=== PATIENT | female | born 1950 | race Caucasian/White ===

== ENCOUNTER → 2017-02-06 | Outpatient (CLI) | payer BC ==
[2017-02-06 18:06] LABS: ESTIMATED AVERAGE GLUCOSE 117 mg/dl; HA1C FLAG Normal (Normal)
== END | disposition home or self-care (01) ==
LOC: C.LABPVFM 14:11
PROVIDERS: ATTEND Neuromusculoskeletal Medicine & OMM
DX: Z00.00 Encounter for general adult medical examination without abnormal findings (principal); Z11.59 Encounter for screening for other viral diseases

== ENCOUNTER → 2017-04-06 | Outpatient (CLI) | payer BC ==
--- NOTE | 2017-04-06 13:48 | MAMMOGRAPHY REPORT ---
BILATERAL DIGITAL SCREENING MAMMOGRAM WITH CAD: 04/06/2017 CLINICAL HISTORY: Routine screening. Patient has no complaints. TECHNIQUE: Current study was also evaluated with a Computer Aided Detection (CAD) system. Bilateral CC and MLO views were obtained. COMPARISON: Comparison is made to exam dated: 04/12/2011 mammogram - [facility]. BREAST COMPOSITION: There are scattered areas of fibroglandular density in both breasts. FINDINGS: No suspicious masses, calcifications, or areas of architectural distortion are noted in ei ther breast. There has been no significant interval change compared to prior exams. IMPRESSION: ACR BI-RADS CATEGORY 1: NEGATIVE There is no mammographic evidence of malignancy. A 1 year screening mammogram is recommended. The pa tient will receive written notification of the results. Approximately 10% of breast cancers are not detected with mammography. A negative mammographic report should not delay biopsy if a clinically suggestive mass is present. Karoline Barrera M.D. ah/:04/06/2017 12:53:00 Exchange Trouble Shooter: Graciela KAHN(Preston)(Ana), [facility] letter sent: Normal 1/2 BI-RADS Code: ACR BI-RADS Category 1: Negative
== END | disposition home or self-care (01) ==
LOC: C.MAMM 11:12
PROVIDERS: ATTEND Neuromusculoskeletal Medicine & OMM
DX: Z00.00 Encounter for general adult medical examination without abnormal findings (principal); Z12.31 Encounter for screening mammogram for malignant neoplasm of breast; M85.89 Other specified disorders of bone density and structure, multiple sites

== ENCOUNTER 2022-06-21 08:11 | Observation (INO) ==
--- NOTE | 2022-06-21 09:04 | Emergency Department Note ---
History of Present Illness General Chief complaint: Visual Disturbance Stated complaint: EYE PROBLEMS Time Seen by Provider: 06/21/22 08:52 History of Present Illness Provider complaint: "I feel like I was not getting enough oxygen" Onset (ago): hour(s) 4 Associated symptoms: + cough; no chest pain, no fever/chills, no headaches or no nausea/vomiting 71-year-old female presents emergency department stating "I feel like I was not getting enough oxygen". Patient reports her symptoms started at 5 AM. Patient reports she was not short of breath but was worried she is not getting enough oxygen in her body because she was having blurry vision. Patient reports the blurry vision has resolved and she now feels like she is getting adequate oxygen in her body. Patient denies any chest pain or difficulty breathing. Patient does report a cough. No fevers. Patient states that she had no chest pain. Home Medications Medication Instructions Recorded Confirmed Type aspirin 81 mg tablet,delayed 81 mg PO DAILY 06/03/22 06/21/22 History release (Adult Aspirin Regimen) atorvastatin 80 mg tablet 80 mg PO DAILY #90 tabs 06/16/22 06/21/22 Rx lisinopril 2.5 mg tablet 2.5 mg PO DAILY #90 tabs 06/16/22 06/21/22 Rx metoprolol succinate 25 mg 25 mg PO DAILY #90 tabs 06/16/22 06/21/22 Rx tablet,extended release 24 hr ticagrelor 90 mg tablet 90 mg PO Q12H #180 tabs 06/16/22 06/21/22 Rx Allergies Allergy/AdvReac Type Severity Reaction Status Date / Time acetaminophen Allergy Unknown "made me Verified 06/03/22 10:02 sick" shellfish derived Allergy Unknown SEAFOOD Verified 06/03/22 10:02 ALLERGY aspirin AdvReac Unknown BLEEDING Verified 06/03/22 10:02 meperidine AdvReac Unknown "felt like Verified 06/03/22 10:02 my head and heart was going to blow up" oxycodone AdvReac Unknown "felt like Verified 06/03/22 10:02 my head and heart was going to blow up" Darvocet Allergy Unknown Uncoded 06/03/22 10:02 Past Med/Surg History Medical History (Updated 06/21/22 @ 13:28 by Jose Carlos Quentin) Abnormal blood sugar Bladder prolapse CAD (coronary artery disease) Elevated blood-pressure reading, without diagnosis of hypertension Graves disease HTN (hypertension) STEMI (ST elevation myocardial infarction) Surgical History (Updated 06/21/22 @ 12:55 by MAU Clark) H/O heart artery stent History of cardiac cath X2 ON 05/30/2022 AND 06/01/2022 History of cholecystectomy History of hysterectomy History of total right knee replacement Status post coronary artery stent placement Family History Mother Stroke Heart disease Bleeding disorder Brother Asthma Bleeding disorder Other No family history of adverse response to anesthesia Denies family history of Ovarian cancer Prostate cancer Myocardial infarction Breast cancer Colorectal cancer Social History Smoking Status: Never smoker packs per day: 0.5; Years Smoked: 20; Second Hand Exposure: No; Hx Alcohol Use: No Hx Substance Use: No Visual Impairment: No Limitations Hearing Ability: Normal Beliefs That Will Affect Care: None marital status: Current Living Situation: Spouse current occupational status: employed and retired 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 Feels Safe at Home: Yes caffeine: Yes Dental Care, Regularly: No Physical Activity Frequency: 1-2 Times per Week Seatbelt Use: always Sunscreen Use: Yes Review of Systems A total of 10 systems reviewed and were otherwise negative Physical Exam Vital Signs Vital Signs - 24 hr 06/21/22 08:20 06/21/22 09:04 06/21/22 12:12 Temperature 36.6 C 36.7 C Temperature Source Temporal Artery Scan Oral Pulse Rate 72 69 Pulse Rate [Apical] 68 Pulse Rhythm Regular Respiratory Rate 18 18 16 Respiratory Effort / Characteristics Non-Labored Spontaneous Respiratory Depth Normal Respiratory Pattern Regular Blood Pressure 117/64 Blood Pressure [Left Arm] 131/74 Blood Pressure Mean 81 Blood Pressure Mean [Left Arm] 93 Blood Pressure Position Sitting Pulse Oximetry 98 97 97 Oxygen Delivery Method Room Air Room Air Room Air Sepsis Recent Fever Within 48 Hours No Sepsis New/Unexplained Change in Mental Status No Sepsis Action Taken by Nursing No Action Required Physical Exam GENERAL: She is oriented to person, place, and time. She appears well-developed and well-nourished. She does not appear distressed. HENT: Exam performed. -Head: Normocephalic and atraumatic. -Right Ear: External ear normal. No mastoid tenderness. -Left Ear: External ear normal. No mastoid tenderness. -Mouth/Throat: The oropharynx is clear and moist. No trismus in the jaw. No dental abscesses or uvula swelling. No oropharyngeal exudate or tonsillar abscesses. EYES: Conjunctivae and EOM are normal. Pupils are equal, round, and reactive to light. Right eye exhibits no discharge. Left eye exhibits no discharge. No scleral icterus. NECK: Normal range of motion. Neck supple. No JVD present. No spinous process tenderness present. No carotid bruit present. No rigidity. No tracheal deviation and normal range of motion present. No Brudzinski's sign and no Kernig's sign noted. CV: Normal rate, regular rhythm, normal heart sounds and intact distal pulses. There is no peripheral edema. Palpable radial pulses bue. PULM/CHEST: Effort normal and breath sounds normal. No respiratory distress. No stridor. She has no wheezes. She has no rales. -Chest Wall: She exhibits no tenderness. ABD: The abdomen is soft. Bowel sounds are normal. She has no distension. No mass is present. There is no tenderness. There is no rebound, no guarding, no Holden's sign and no tenderness at McBurney's point. Rovsig negative MUSC/SKEL: Normal range of motion. There is no peripheral edema, tenderness or deformity. LYMPH: No cervical adenopathy. NEURO: She is alert and oriented to person, place, and time. She has normal strength. No cranial nerve deficit or sensory deficit. Coordination and gait normal. GCS eye subscore is 4. GCS verbal subscore is 5. GCS motor subscore is 6. Cerebellar tests wnl. SKIN: Skin is warm and dry. She is not diaphoretic. PSYCH: She has a normal mood and affect. Behavior is normal. Judgment and thought content normal. Course Course 851: The patient was evaluated in room A10. A complete history and physical exam was performed Cardiac monitoring: An order was placed for continuous cardiac monitoring. The monitor shows a rate of 60 with sinus rhythm EMR reviewed. Patient had a STEMI on May 30, 2022. She had a cardiac catheterization done on that day and a stent was placed in her LAD as there is 9 9% occlusion. The patient had a subsequent catheterization on June 01 and had a stent placed in her RCA. 1200: Vital signs stable. Labs within normal limits with exception of elevated high-sensitivity troponin of 30. Imaging within normal limits. Given the patient's history of coronary artery disease and recent stent placement discussed with [facility] hospitalist team who agreed the patient should be admitted for serial troponins. She states to admit to Dr. Hu Administered Medications Discontinued Medications Ioversol (Optiray 300 500ml) 120 ml IV ONCE ONE Stop: 06/21/22 11:09 Last Admin: 06/21/22 11:08 Dose: 120 ml Documented By: KESHIA Medical Decision Making Laboratory Data Result diagrams: 06/21/22 09:04 06/21/22 11:17 Lab Results 06/21/22 06/21/22 06/21/22 Range/Units 09:04 09:04 09:04 WBC 6.11 (4.8-10.8) K/ul RBC 4.67 (3.93-5.22) M/uL Hgb 13.4 (12.0-16.0) g/dl POC Hgb (12.0-16.0) g/dl Hct 40.1 (34.1-44.9) % POC Hct (37-47) % MCV 85.9 (80.0-100.0) fL MCH 28.7 (25.0-34.0) pg MCHC 33.4 (32.0-36.0) g/dL RDW Std Deviation 39.8 (36.4-46.3) fL RDW Coeff of Rose Marie 12.8 (11.5-14.5) % Plt Count 227 (130-400) K/uL MPV 12.2 (9.4-12.3) fL Immature Gran % (Auto) 0.3 % Neut % (Auto) 72.9 % Lymph % (Auto) 17.5 % Glades % (Auto) 6.7 % Eos % (Auto) 1.8 % Baso % (Auto) 0.8 % Neut # (Auto) 4.45 (1.4-6.5) K/uL Lymph # (Auto) 1.07 L (1.2-3.4) K/uL Glades # (Auto) 0.41 (0.24-0.82) K/uL Eos # (Auto) 0.11 (0-0.50) K/uL Baso # (Auto) 0.05 (0-0.2) K/uL Immature Gran # (Auto) 0.02 (0.00-0.02) K/uL PT 10.5 (9.0-12.0) Seconds INR 1.0 (0.9-1.1) APTT 25.1 (21.0-31.0) Seconds PTT Ratio 0.9 POC Sodium (135-144) mmol/L Sodium 136 (136-145) mmol/L POC Potassium (3.3-5.0) mmol/L Potassium TNP POC Chloride (101-112) mmol/L Chloride 105 (98-107) mmol/L Carbon Dioxide 21 (21-32) mmol/L POC Total CO2 (24-31) mmol/L Anion Gap 10 (3-11) POC Anion Gap (16-25) mmol/L POC BUN (7-18) mg/dl BUN 18 (6-23) mg/dl Creatinine 0.94 (0.6-1.2) mg/dl POC Creatinine (0.6-1.3) mg/dl Est Cr Clr Drug Dosing 48.0 ml/min Est GFR ( Amer) 69.8 ml/min Est GFR (Non-Af Amer) 60.2 ml/min BUN/Creatinine Ratio 19.1 (10-20) Glucose 88 (70-99(Fasting)) mg/dl POC Glucose (other) (70-99) mg/dl Calcium 10.1 (8.5-10.1) mg/dl POC Ioniz Calcium Mikayla (1.12-1.32) mmol/l Troponin I High Sens 30.5 H (0-14) pg/ml Lipase 112 H (11-82) U/L SARS-CoV-2, RNA, NAAT (NEGATIVE) 06/21/22 06/21/22 06/21/22 Range/Units 09:28 11:17 11:33 WBC (4.8-10.8) K/ul RBC (3.93-5.22) M/uL Hgb (12.0-16.0) g/dl POC Hgb 11.9 L (12.0-16.0) g/dl Hct (34.1-44.9) % POC Hct 35 L (37-47) % MCV (80.0-100.0) fL MCH (25.0-34.0) pg MCHC (32.0-36.0) g/dL RDW Std Deviation (36.4-46.3) fL RDW Coeff of Rose Marie (11.5-14.5) % Plt Count (130-400) K/uL MPV (9.4-12.3) fL Immature Gran % (Auto) % Neut % (Auto) % Lymph % (Auto) % Glades % (Auto) % Eos % (Auto) % Baso % (Auto) % Neut # (Auto) (1.4-6.5) K/uL Lymph # (Auto) (1.2-3.4) K/uL Glades # (Auto) (0.24-0.82) K/uL Eos # (Auto) (0-0.50) K/uL Baso # (Auto) (0-0.2) K/uL Immature Gran # (Auto) (0.00-0.02) K/uL PT (9.0-12.0) Seconds INR (0.9-1.1) APTT (21.0-31.0) Seconds PTT Ratio POC Sodium 137 (135-144) mmol/L Sodium (136-145) mmol/L POC Potassium 4.3 (3.3-5.0) mmol/L Potassium 4.2 POC Chloride 103 (101-112) mmol/L Chloride (98-107) mmol/L Carbon Dioxide (21-32) mmol/L POC Total CO2 23 L (24-31) mmol/L Anion Gap (3-11) POC Anion Gap 15.0 L (16-25) mmol/L POC BUN 18 (7-18) mg/dl BUN (6-23) mg/dl Creatinine (0.6-1.2) mg/dl POC Creatinine 0.9 (0.6-1.3) mg/dl Est Cr Clr Drug Dosing ml/min Est GFR ( Amer) ml/min Est GFR (Non-Af Amer) ml/min BUN/Creatinine Ratio (10-20) Glucose (70-99(Fasting)) mg/dl POC Glucose (other) 88 (70-99) mg/dl Calcium (8.5-10.1) mg/dl POC Ioniz Calcium Mikayla 1.21 (1.12-1.32) mmol/l Troponin I High Sens (0-14) pg/ml Lipase (11-82) U/L SARS-CoV-2, RNA, NAAT NEGATIVE (NEGATIVE) Imaging Data Radiologist's Impression: Chest X-Ray 06/21/22 09:01 XR chest 1V portable CLINICAL HISTORY: Chest Pain TECHNIQUE: Single frontal radiograph of the chest was obtained. Comparison: Comparison is made to chest radiograph 02/17/2013 FINDINGS: No lines and tubes are seen. Calcified aortic knob is seen. The lungs are clear. No evidence of pleural effusion or pneumothorax. IMPRESSION: No acute chest disease. ACT 112: Negative or not required by law. Electronically signed by: Rafal Tatum M.D. 06/21/2022 9:[address] 06/21/22 09:01 CT head/brain wo con CLINICAL HISTORY: 71 years-old Female with blurry vision resolved. Acute strokelike symptoms with blurry vision TECHNIQUE: Multiple axial CT images of the head were obtained without contrast. A dose lowering technique was utilized adhering to the principles of ALARA. CT DOSE: 537.48 mGy.cm COMPARISON: Head CT 04/07/2010 FINDINGS: No acute intracranial hemorrhage, midline shift, intracranial mass, hydrocephalus, territorial ischemia or abnormal extra-axial collection. Mild involutional changes. The calvarium is intact. The paranasal sinuses, mastoid air cells, and middle ear cavities are clear. IMPRESSION: No acute intracranial abnormality. ACT 112: Negative or not required by law. The above report was generated using voice recognition software. It may contain grammatical, syntax or spelling errors. Electronically signed by: Bolivar Allen M.D. 06/21/2022 9:43 AM Chest CTA 06/21/22 10:33 CT angio chest PE protocol CLINICAL HISTORY: ro pe TECHNIQUE: Multidetector row helical CT of the chest was performed with angiographic protocol. Coronal and sagittal reformations were obtained. Coronal and sagittal MIPS were obtained from the axial data set and were submitted for review. Automated dose lowering techniques and/or adjustment according to patient size were utilized for this exam. CT DOSE: 261.24 mGy.cm Comparison: Comparison is made to chest radiograph 06/21/2022 and CTA chest 10/16/2010 FINDINGS: Lungs and pleura: There is a 4 mm nodule in the left lower lobe (series 4 image 90). A fissural node is seen in the right horizontal fissure which may represent an intraparenchymal lymph node. Heart and pericardium: Heart size is normal. No pericardial effusion. Vessels: Evaluation for pulmonary embolism is limited due to patient motion. No evidence of central, lobar, or segmental embolus. Severe atherosclerotic disease is seen in the coronary arteries. Mediastinum and saul: Subcentimeter lymph nodes are seen. Chest wall and lower neck: Unremarkable. Abdomen: A hiatal hernia is seen. Bones: Degenerative changes in the thoracic spine. IMPRESSION: 1. No evidence of pulmonary embolism. 2. 4 mm nodule in the left lower lobe. This is unchanged from prior exam. No further follow-up is required. ACT 112: Negative or not required by law. Electronically signed by: Rafal Tatum M.D. 06/21/2022 11:27 AM ECG Data Indication: + SOB/dyspnea Rate (beats per minute): 64 Rhythm: + normal sinus ECG Intervals/blocks: + Normal TX and + Normal QT-c ECG ST segments: + Normal ST segments Additional Comments: QRS 76 MDM Narrative 0852: The patient was evaluated in room A10. A complete history and physical exam was performed Cardiac monitoring: An order was placed for continuous cardiac monitoring. The monitor shows a rate of 60 with sinus rhythm EMR reviewed. Patient had a STEMI on May 30, 2022. She had a cardiac catheterization done on that day and a stent was placed in her LAD as there is 99% occlusion. The patient had a subsequent catheterization on June 01 and had a stent placed in her RCA. 1200: Vital signs stable. Labs within normal limits with exception of elevated high-sensitivity troponin of 30. Imaging within normal limits. Given the patient's history of coronary artery disease and recent stent placement discussed with [facility] hospitalist team who agreed the patient should be admitted for serial troponins. She states to admit to Dr. Hu Impression & Plan Shortness of breath, Elevated troponin Discharge Plan Visit Data Chief Complaint: Visual Disturbance Stated Complaint: EYE PROBLEMS ED Provider: Jose Carlos Saavedra Discharge Problem: Shortness of breath, Elevated troponin Patient Disposition: Being Evaluated by Hospitalist Forms Stand Alone Forms: My [facility] Prescriptions Prescriptions: No Action atorvastatin 80 mg tablet 80 mg PO DAILY Qty: 90 3RF lisinopril 2.5 mg tablet 2.5 mg PO DAILY Qty: 90 3RF metoprolol succinate 25 mg tablet extended release 24 hr 25 mg PO DAILY Qty: 90 3RF ticagrelor 90 mg tablet 90 mg PO Q12H Qty: 180 3RF aspirin [Adult Aspirin Regimen] 81 mg tablet,delayed release (DR/EC) 81 mg PO DAILY Referrals Referrals: Linda Johnson CRNP [Nurse Practitioner] -
--- NOTE | 2022-06-21 09:11 | XRay Report ---
XR chest 1V portable CLINICAL HISTORY: Chest Pain TECHNIQUE: Single frontal radiograph of the chest was obtained. Comparison: Comparison is made to chest radiograph 02/17/2013 FINDINGS: No lines and tubes are seen. Calcified aortic knob is seen. The lungs are clear. No evidence of pleur al effusion or pneumothorax. IMPRESSION: No acute chest disease. ACT 112: Negative or not required by law. Electronically signed by: Rafal Tatum M.D. 06/21/2022 9:09 AM
[2022-06-21 09:20] LABS: Basophils # (auto) 0.05 K/uL (0-0.2); Basophils % (auto) 0.8 %; Eosinophils # (auto) 0.11 K/uL (0-0.50); Eosinophils % (auto) 1.8 %; Hematocrit (blood only) 40.1 % (34.1-44.9); Hemoglobin 13.4 g/dl (12.0-16.0); Immature Granulocytes # (auto) 0.02 K/uL (0.00-0.02); Immature Granulocytes % (auto) 0.3 %; Lymphocytes # (auto) 1.07 K/uL (1.2-3.4); Lymphocytes % (auto) 17.5 %; Mean Corpuscular Hemoglobin 28.7 pg (25.0-34.0); Mean Corpuscular Hgb Conc 33.4 g/dL (32.0-36.0); Mean Corpuscular Volume 85.9 fL (80.0-100.0); Mean Platelet Volume 12.2 fL (9.4-12.3); Monocytes # (auto) 0.41 K/uL (0.24-0.82); Monocytes % (auto) 6.7 %; Neutrophils # (auto) 4.45 K/uL (1.4-6.5); Neutrophils % (auto) 72.9 %; Platelet Count 227 K/uL (130-400); RDW Coefficient of Variation 12.8 % (11.5-14.5); RDW Standard Deviation 39.8 fL (36.4-46.3); Red Blood Count 4.67 M/uL (3.93-5.22); White Blood Count 6.11 K/ul (4.8-10.8)
[2022-06-21 09:36] LABS: Partial Thromboplastin Ratio 0.9; Partial Thromboplastin Time 25.1 Seconds (21.0-31.0); Prothrombin Time 10.5 Seconds (9.0-12.0)
--- NOTE | 2022-06-21 09:45 | CT Scan Report ---
CT head/brain wo con CLINICAL HISTORY: 71 years-old Female with blurry vision resolved. Acute strokelike symptoms with bl urry vision TECHNIQUE: Multiple axial CT images of the head were obtained without contrast. A dose lowering tech nique was utilized adhering to the principles of ALARA. CT DOSE: 537.48 mGy.cm COMPARISON: Head CT 04/07/2010 FINDINGS: No acute intracranial hemorrhage, midline shift, intracranial mass, hydrocephalus, territorial ischem ia or abnormal extra-axial collection. Mild involutional changes. The calvarium is intact. The paranasal sinuses, mastoid air cells, and middle ear cavities are clear . IMPRESSION: No acute intracranial abnormality. ACT 112: Negative or not required by law. The above report was generated using voice recognition software. It may contain grammatical, syntax o r spelling errors. Electronically signed by: Bolivar Allen M.D. 06/21/2022 9:43 AM
[2022-06-21 09:50] LABS: Troponin I High Sensitivity 30.5 pg/ml (0-14)
[2022-06-21 10:45] LABS: Anion Gap 10 (3-11); BUN Creatinine Ratio 19.1 (10-20); Blood Urea Nitrogen 18 mg/dl (6-23); Calcium 10.1 mg/dl (8.5-10.1); Carbon Dioxide 21 mmol/L (21-32); Chloride 105 mmol/L (98-107); Est GFR (African American) 69.8 ml/min; Est GFR (Non-African American) 60.2 ml/min; Glucose 88 mg/dl (70-99(Fasting)); Lipase 112 U/L (11-82); Sodium 136 mmol/L (136-145)
[2022-06-21] MEDS ORDERED: OPTIRAY 300 500mL IV ONE (11:08)
--- NOTE | 2022-06-21 11:28 | CT Scan Report ---
CT angio chest PE protocol CLINICAL HISTORY: ro pe TECHNIQUE: Multidetector row helical CT of the chest was performed with angiographic protocol. Rodriguez l and sagittal reformations were obtained. Coronal and sagittal MIPS were obtained from the axial cyndi a set and were submitted for review. Automated dose lowering techniques and/or adjustment according to patient size were utilized for this exam. CT DOSE: 261.24 mGy.cm Comparison: Comparison is made to chest radiograph 06/21/2022 and CTA chest 10/16/2010 FINDINGS: Lungs and pleura: There is a 4 mm nodule in the left lower lobe (series 4 image 90). A fissural node is seen in the right horizontal fissure which may represent an intraparenchymal lymph node. Heart and pericardium: Heart size is normal. No pericardial effusion. Vessels: Evaluation for pulmonary embolism is limited due to patient motion. No evidence of central, lobar, or segmental embolus. Severe atherosclerotic disease is seen in the coronary arteries. Mediastinum and saul: Subcentimeter lymph nodes are seen. Chest wall and lower neck: Unremarkable. Abdomen: A hiatal hernia is seen. Bones: Degenerative changes in the thoracic spine. IMPRESSION: 1. No evidence of pulmonary embolism. 2. 4 mm nodule in the left lower lobe. This is unchanged from prior exam. No further follow-up is re quired. ACT 112: Negative or not required by law. Electronically signed by: Rafal Tatum M.D. 06/21/2022 11:27 AM
[2022-06-21 11:46] LABS: iSTAT Creatinine 0.9 mg/dl (0.6-1.3); iSTAT Hemoglobin 11.9 g/dl (12.0-16.0); iSTAT Ionized Calcium 1.21 mmol/l (1.12-1.32); iSTAT Potassium 4.3 mmol/L (3.3-5.0)
--- NOTE | 2022-06-21 12:00 | History & Physical Report ---
Date of Service June 21, 2022 Assessment & Plan (1) CAD (coronary artery disease): (2) Status post coronary artery stent placement: (3) Graves disease: (4) HTN (hypertension): Plan 71 year old female who presented today feeling like she wasnt getting enough oxygen. Her feelings of this started around 0500 this AM. She also reports having blurry vision that lasted more than two hours but has resolved. NSR on monitor, Troponin's slightly elevated at 30.5; will trend; likely could be residual from recent STEMI. CT head was negative and CTA of chest negative. Carotid US ordered. Additional PMH includes: a STEMI on May 30, 2022 s/p PCI stent placement x2 (LAD and RCA) due to 99% occlusion, HTN, bladder prolapse, and Grave's Disease. Pt clear she does not like going to the doctors for routine care. CAD H/O s/p coronary artery stent placement: blurry vision STEMI on May 30, 2022 s/p PCI stent placement x2 (LAD and RCA) due to 99% occlusion Takes ASA 81 mg PO daily and Brilinta; continue Troponin 30.5; will trend. Suspect elevation to be r/t residual from STEMI Pt indicates some forgetfulness; will obtain bilateral carotid US Blurry vision has resolved ECHO ordered Mg+ level pending; K+ 4.3 Heart-healthy diet EKG in AM HTN: Takes Metoprolol; BP stable; continue HLD: Takes atorvastatin; continue obtain lipid panel in AM Grave's Disease: Does not take any medications or follow with Endocrine Will check TSH Disposition: PCP: Dr. Newton Code: Full Code VTE Prophylaxis: TEDs Point of Contact: Jean: [phone] I personally was able to review all current laboratory work and diagnostic images obtained in the ED. Additionally, I was able to review the patients past medication reconciliation and history with direct visualization in the patients chart. This patient was seen in collaboration with Dr. Azul. Please see his addendum for further information. History of Present Illness Chief Complaint: 'not getting enough breath' Primary Care Provider: Kristy Blount MD Ms. Saucedo is a 71 year old female who presented to the [facility] ED today feeling like she wasnt getting enough oxygen. Her feelings of this s tarted around 0500 this AM. She also reports having blurry vision that lasted more than two hours. Pt denies PALMA, dizziness, neck pain, diaphoresis, orthopnea, limb pain, CP, palpitations, N/V/D, skin changes. Patient was NSR on monitor, Troponin's slightly elevated at30.5; will trend. CT head was negative and CTA of chest revealed a 4 mm nodule in the LL base. Additional PMH includes: a STEMI for which she was seen at [place] and transferred to [facility] and thereafter was transferred to [facility] on May 30, 2022 s/p PCI stent placement x2 (LAD and RCA) due to 99% occlusion, HTN, bladder prolapse, and Grave's Disease. Her , Jean, accompanied her to the ED and was at her bedside for our visit. Patient denies alcohol, drug use, recreational drug use. Head CT and CTA were obtained and negative. During evaluation the patient was sitting in her hospital bed in no apparent distress. She is currently hemodynamically stable. Pt clear she does not like going to the doctors for routine care. She will be admitted to the hospitalist service for further evaluation and management. Please see A/P for further details. Allergies Allergy/AdvReac Type Severity Reaction Status Date / Time acetaminophen Allergy Unknown "made me Verified 06/03/22 10:02 sick" shellfish derived Allergy Unknown SEAFOOD Verified 06/03/22 10:02 ALLERGY aspirin AdvReac Unknown BLEEDING Verified 06/03/22 10:02 meperidine AdvReac Unknown "felt like Verified 06/03/22 10:02 my head and heart was going to blow up" oxycodone AdvReac Unknown "felt like Verified 06/03/22 10:02 my head and heart was going to blow up" Darvocet Allergy Unknown Uncoded 06/03/22 10:02 Home Medications Medication Instructions Recorded Confirmed Type aspirin 81 mg tablet,delayed 81 mg PO DAILY 06/03/22 06/21/22 History release (Adult Aspirin Regimen) atorvastatin 80 mg tablet 80 mg PO DAILY #90 tabs 06/16/22 06/21/22 Rx lisinopril 2.5 mg tablet 2.5 mg PO DAILY #90 tabs 06/16/22 06/21/22 Rx metoprolol succinate 25 mg 25 mg PO DAILY #90 tabs 06/16/22 06/21/22 Rx tablet,extended release 24 hr ticagrelor 90 mg tablet 90 mg PO Q12H #180 tabs 06/16/22 06/21/22 Rx Past Med/Surg History Medical History (Updated 06/21/22 @ 13:28 by Jose Carlos Saavedra) Abnormal blood sugar Bladder prolapse CAD (coronary artery disease) Elevated blood-pressure reading, without diagnosis of hypertension Graves disease HTN (hypertension) STEMI (ST elevation myocardial infarction) Surgical History (Updated 06/21/22 @ 12:55 by MAU Clark) H/O heart artery stent History of cardiac cath X2 ON 05/30/2022 AND 06/01/2022 History of cholecystectomy History of hysterectomy History of total right knee replacement Status post coronary artery stent placement Family History Mother Stroke Heart disease Bleeding disorder Brother Asthma Bleeding disorder Other No family history of adverse response to anesthesia Denies family history of Ovarian cancer Prostate cancer Myocardial infarction Breast cancer Colorectal cancer Social History Smoking Status: Never smoker packs per day: 0.5; Years Smoked: 20; Second Hand Exposure: No; Hx Alcohol Use: No Hx Substance Use: No Visual Impairment: No Limitations Hearing Ability: Normal Beliefs That Will Affect Care: None marital status: Current Living Situation: Spouse current occupational status: employed and retired 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 Azul's addendum for physical examination Results & Data Results & Data ([facility]) Vital Signs (Past 12 Hours) Vital Signs Temp Pulse Resp BP Pulse Ox O2 Del Method 06/21/22 09:04 69 18 97 Room Air 06/21/22 08:20 36.6 C 72 18 117/64 98 Room Air Laboratory Results Short CBC 06/21/22 Range/Units 09:04 WBC 6.11 (4.8-10.8) K/ul Hgb 13.4 (12.0-16.0) g/dl Hct 40.1 (34.1-44.9) % Plt Count 227 (130-400) K/uL BMP 06/21/22 06/21/22 09:04 11:17 Sodium 136 Potassium TNP 4.2 Chloride 105 Carbon Dioxide 21 BUN 18 Creatinine 0.94 Glucose 88 Calcium 10.1 Diagnostic Findings Chest X-Ray 06/21/22 09:01 XR chest 1V portable CLINICAL HISTORY: Chest Pain TECHNIQUE: Single frontal radiograph of the chest was obtained. Comparison: Comparison is made to chest radiograph 02/17/2013 FINDINGS: No lines and tubes are seen. Calcified aortic knob is seen. The lungs are clear. No evidence of pleural effusion or pneumothorax. IMPRESSION: No acute chest disease. ACT 112: Negative or not required by law. Electronically signed by: Rafal Tatum M.D. 06/21/2022 9:[address] 06/21/22 09:01 CT head/brain wo con CLINICAL HISTORY: 71 years-old Female with blurry vision resolved. Acute strokelike symptoms with blurry vision TECHNIQUE: Multiple axial CT images of the head were obtained without contrast. A dose lowering technique was utilized adhering to the principles of ALARA. CT DOSE: 537.48 mGy.cm COMPARISON: Head CT 04/07/2010 FINDINGS: No acute intracranial hemorrhage, midline shift, intracranial mass, hydrocephalus, territorial ischemia or abnormal extra-axial collection. Mild involutional changes. The calvarium is intact. The paranasal sinuses, mastoid air cells, and middle ear cavities are clear. IMPRESSION: No acute intracranial abnormality. ACT 112: Negative or not required by law. The above report was generated using voice recognition software. It may contain grammatical, syntax or spelling errors. Electronically signed by: Bolivar Allen M.D. 06/21/2022 9:43 AM Chest CTA 06/21/22 10:33 CT angio chest PE protocol CLINICAL HISTORY: ro pe TECHNIQUE: Multidetector row helical CT of the chest was performed with angiographic protocol. Coronal and sagittal reformations were obtained. Coronal and sagittal MIPS were obtained from the axial data set and were submitted for review. Automated dose lowering techniques and/or adjustment according to patient size were utilized for this exam. CT DOSE: 261.24 mGy.cm Comparison: Comparison is made to chest radiograph 06/21/2022 and CTA chest 10/16/2010 FINDINGS: Lungs and pleura: There is a 4 mm nodule in the left lower lobe (series 4 image 90). A fissural node is seen in the right horizontal fissure which may represent an intraparenchymal lymph node. Heart and pericardium: Heart size is normal. No pericardial effusion. Vessels: Evaluation for pulmonary embolism is limited due to patient motion. No evidence of central, lobar, or segmental embolus. Severe atherosclerotic disease is seen in the coronary arteries. Mediastinum and saul: Subcentimeter lymph nodes are seen. Chest wall and lower neck: Unremarkable. Abdomen: A hiatal hernia is seen. Bones: Degenerative changes in the thoracic spine. IMPRESSION: 1. No evidence of pulmonary embolism. 2. 4 mm nodule in the left lower lobe. This is unchanged from prior exam. No further follow-up is required. ACT 112: Negative or not required by law. Electronically signed by: Rafal Tatum M.D. 06/21/2022 11:27 AM ECG Additional Comments: Indication: + SOB/dyspnea Rate (beats per minute): 64 Rhythm: + normal sinus ECG Intervals/blocks: + Normal HI and + Normal QT-c ECG ST segments: + Normal ST segments QRS 76 Code Status & VTE Plan Code Status Full Code in the event of cardiac or respiratory arrest VTE Prophylaxis Plan VTE Prophylaxis will be ordered: Yes Supervising Physician Co-Signing Physician Notes Pt is a 71 y/o F with hx of CAD s/p JOJO, Graves disease (not on any meds) , HTN admitted for acute onset of SOB like symptoms with blurry vision. PE: NAD, well developed HEENT: EOMI, normal conjunctiva Lungs: CTA, no wheezing or crackles Heart: normal S1/S2, no murmur Abd: ND, NT, normal BS MSK: no LE edema Psych: AAOx3, normal affect A/P: SOB with Blurry vision: -self resolved -EKG: NSR, no ST elevation, TWI on v1, v2 with possible poor R wave progression -HsTrop is slightly elevated ---pt is currently asymptomatic --- will trend Trop --- will get echo and cardiology consult ---continue DAPT -CTA chest: no PE -CT head is normal but will get b/l carotid Doppler -obtain TSH -lipase is elevated but pt does not have any GI symptoms --- will repeat geoffrey AM Other conditions: plan as above. Agree with A/P by MAU Lr
--- NOTE | 2022-06-21 14:58 | Ultrasound Report ---
BILATERAL CAROTID DOPPLER STUDY HISTORY: altered mental status; elevated troponin COMPARISON: None. TECHNIQUE: Real-time, grayscale, and color Doppler sonography of the carotid arteries was performed. Imaging reviewed in the transverse and longitudinal planes. All measurements were calculated based on NASCET criteria. FINDINGS: Antegrade flow is seen in the bilateral vertebral arteries. Minimal calcified plaque within the bilateral carotid bifurcations. The peak systolic velocity within the right ICA is 100 cm/s. The right systolic ratio is 0.75. The peak systolic velocity within the left ICA is 91 cm/s. The left systolic ratio is 1.0. IMPRESSION: No hemodynamically significant stenosis seen within the carotid arteries. ACT 112: Negative or not required by law. Electronically signed by: Kevin Parish M.D. 06/21/2022 2:56 PM
[2022-06-21 16:23] LABS: Magnesium 2.1 mg/dl (1.7-2.4)
[2022-06-21] MEDS ORDERED: ACETAMINOPHEN 325 MG TAB PO PRN (16:23)
[2022-06-21] MEDS ORDERED: MAGNESIUM HYDROXIDE SUSP 30 ML UDC PO PRN (16:23)
[2022-06-21] MEDS ORDERED: ALUMINUM/MAGNESIUM SUSP 30 ML UDC PO PRN (16:23)
[2022-06-21] MEDS ORDERED: ONDANSETRON INJ 2 MG/ML 2 ML VIAL IV PRN (16:23)
[2022-06-21] MEDS ORDERED: POLYETHYLENE (MIRALAX) 17 GM PACK PO PRN (16:23)
[2022-06-21 16:30] LABS: Troponin I High Sensitivity 28.7 pg/ml (0-14)
--- NOTE | 2022-06-21 16:33 | Electrocardiogram Report ---
Test Reason : Blood Pressure : / mmHG Vent. Rate : 064 BPM Atrial Rate : 064 BPM P-R Int : 152 ms QRS Dur : 076 ms QT Int : 412 ms P-R-T Axes : 062 056 106 degrees QTc Int : 425 ms Normal sinus rhythm Low voltage QRS Septal infarct , age undetermined T wave abnormality, consider anterolateral ischemia Abnormal ECG When compared with ECG of 06-MAR-2013 09:21, QRS voltage has decreased Septal infarct is now Present T wave inversion now evident in Anterolateral leads Confirmed by Kerwin Jade ([id number]) on 06/21/2022 4:32:52 PM Referred By: REFERRED SELF Confirmed By:Kerwin Jade
[2022-06-21] MEDS ORDERED: Nursing to Pharmacy Communication SCH (17:30)
[2022-06-21] MEDS: TICAGRELOR 90 MG TAB PO SCH (19:35)
[2022-06-22 06:46] LABS: Hematocrit (blood only) 38.1 % (34.1-44.9); Hemoglobin 13.1 g/dl (12.0-16.0); Mean Corpuscular Hemoglobin 29.2 pg (25.0-34.0); Mean Corpuscular Hgb Conc 34.4 g/dL (32.0-36.0); Mean Platelet Volume 12.5 fL (9.4-12.3); Platelet Count 215 K/uL (130-400); RDW Coefficient of Variation 12.8 % (11.5-14.5); RDW Standard Deviation 39.5 fL (36.4-46.3); Red Blood Count 4.48 M/uL (3.93-5.22); White Blood Count 5.02 K/ul (4.8-10.8)
[2022-06-22 07:05] LABS: BUN Creatinine Ratio 22.1 (10-20); Calcium 9.5 mg/dl (8.5-10.1); Creatinine Clr Calc Pharmacy 47.5 ml/min; Est GFR (African American) 68.9 ml/min; Est GFR (Non-African American) 59.4 ml/min; Potassium 3.9 mmol/L (3.5-5.1)
[2022-06-22] MEDS: TICAGRELOR 90 MG TAB PO SCH (07:28)
[2022-06-22 07:45] LABS: Estimated Average Glucose 123 mg/dl; Hemoglobin A1C 5.9 % (4.5-5.6)
[2022-06-22] MEDS ORDERED: ATORVASTATIN 40 MG TAB PO SCH ×2 (09:00→19:30)
[2022-06-22] MEDS ORDERED: ASPIRIN 81 MG ECTAB PO SCH (09:00)
[2022-06-22] MEDS ORDERED: METOPROLOL SUCC 25MG EXT REL TAB PO SCH (09:00)
[2022-06-22] MEDS ORDERED: lisinopril 2.5 MG TAB PO SCH (09:00)
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
--- NOTE | 2022-06-22 12:20 | Electrocardiogram Report ---
Test Reason : Blood Pressure : / mmHG Vent. Rate : 066 BPM Atrial Rate : 066 BPM P-R Int : 154 ms QRS Dur : 078 ms QT Int : 448 ms P-R-T Axes : 058 044 102 degrees QTc Int : 469 ms Normal sinus rhythm Low voltage QRS Septal infarct (cited on or before 21-JUN-2022) T wave abnormality, consider anterolateral ischemia Abnormal ECG When compared with ECG of 21-JUN-2022 08:50, No significant change Confirmed by Kerwin Jade ([id number]) on 06/22/2022 12:20:05 PM Referred By: REFERRED SELF Confirmed By:Kerwin Jade
--- NOTE | 2022-06-22 14:31 | Hospitalist Progress Note ---
Date of Service June 22, 2022 Assessment & Plan (1) CAD (coronary artery disease): (2) Status post coronary artery stent placement: (3) Graves disease: (4) HTN (hypertension): Plan Patient is a 71 yr female who presented today feeling like she wasnt getting enough oxygen. Her feelings of this started around 0500 this AM. She also reports having blurry vision that lasted more than two hours but has resolved. NSR on monitor, Troponin's slightly elevated at 30.5; will trend; likely could be residual from recent STEMI. CT head was negative and CTA of chest negative. Carotid US ordered. Additional PMH includes: a STEMI on May 30, 2022 s/p PCI stent placement x2 (LAD and RCA) due to 99% occlusion, HTN, bladder prolapse, and Grave's Disease. Coronary artery disease Elevated troponin s/p coronary artery stent placement: H/O STEMI on May 30, 2022 s/p PCI stent placement x2 (LAD and RCA) due to 99% occlusion Mild Troponin elevation likley from recent STEMI -ECHO: No significant change from prior study. EF 60 to 65%. Mild concentric LVH. Grade 1 diastolic dysfunction. No significant valvular pathology. --CTA:No evidence of pulmonary embolism. 4 mm nodule in the left lower lobe. This is unchanged from prior exam. No further follow-up is required. Continue aspirin, Brilinta, statin, metoprolol Appreciate cardiology input Needs follow-up with cardiology upon discharge Transient blurred vision H/O Laser surgery as per patient -CT head:No acute intracranial abnormality. -Carotid ultrasound: No hemodynamically significant stenosis seen within the carotid arteries. -ECHO as above Patient refused MRI due to claustrophobia Advised to follow-up with her bus driver/monitor as outpatient Left lung nodule History of smoking in the past Incidental finding on CT Advised to follow-up with PCP as outpatient HTN: Continue Metoprolol HLD: On atorvastatin; Grave's Disease: Does not take any medications or follow with Endocrine Normal TSH Code Status Full Code Admission and Anticipated Discharge Date Admission Date: June 21, 2022 Subjective Patient is seen and examined at bedside No recurrence of visual problems Denies any chest pain, shortness of breath, dizziness, nausea, abdominal pain Discussed with patient's family at bedside Offers no other complaints Discussed with cardiology today Review of Systems Review of Systems: All systems reviewed & are unremarkable except as noted in Subjective Physical Exam Physical Exam: Physical Exam: Vitals signs as noted above General Appearance:Moderately built and nourished, no apparent distress Head: normocephalic, Atraumatic Eyes: normal inspection, EOMI Neck: supple, Trachea midline Respiratory/Chest: Normal breath sounds, CTA, No accessory muscle use Cardiovascular: S1, S2, No murmur Abdomen/GI:Soft, Non tender, Bowel sounds present Extremities/Musculoskeletal:normal inspection, no edema Neurologic/Psych:AAOX3, grossly no focal neurological deficits Skin: normal color, warm Results & Data Results & Data ([facility]) Vital Signs (Past 12 Hours) Vital Signs Temp Pulse Pulse Resp BP Pulse Ox O2 Del Method 06/22/22 11:05 36.7 C 74 20 124/64 94 Room Air 06/22/22 07:20 67 06/22/22 07:23 36.5 C 68 14 129/52 L 98 Room Air 06/22/22 03:35 36.6 C 66 16 119/55 L 93 Room Air Laboratory Results Short CBC 06/22/22 Range/Units 06:11 WBC 5.02 (4.8-10.8) K/ul Hgb 13.1 (12.0-16.0) g/dl Hct 38.1 (34.1-44.9) % Plt Count 215 (130-400) K/uL BMP 06/22/22 06:11 Sodium 137 Potassium 3.9 Chloride 104 Carbon Dioxide 25 BUN 21 Creatinine 0.95 Glucose 86 Calcium 9.5
--- NOTE | 2022-06-22 14:57 | Discharge Summary ---
Date of Service June 22, 2022 Admission HPI Per Admitting Provider Ms. Saucedo is a 71 year old female who presented to the [facility] ED today feeling like she wasnt getting enough oxygen. Her feelings of this started around 0500 this AM. She also reports having blurry vision that lasted more than two hours. Pt denies PALMA, dizziness, neck pain, diaphoresis, orthopnea, limb pain, CP, palpitations, N/V/D, skin changes. Patient was NSR on monitor, Troponin's slightly elevated at30.5; will trend. CT head was negative and CTA of chest revealed a 4 mm nodule in the LL base. Additional PMH includes: a STEMI for which she was seen at ID and transferred to [facility] and thereafter was transferred to [facility] [place] on [place], 2022 s/p PCI stent placement x2 (LAD and RCA) due to 99% occlusion, HTN, bladder prolapse, and Grave's Disease. Her , Jean, accompanied her to the ED and was at her bedside for our visit. Patient denies alcohol, drug use, recreational drug use. Head CT and CTA were obtained and negative. During evaluation the patient was si tting in her hospital bed in no apparent distress. She is currently hemodynamically stable. Pt clear she does not like going to the doctors for routine care. She will be admitted to the hospitalist service for further evaluation and management. Please see A/P for further details. Admission Exam Per Admitting Provider PE: NAD, well developed HEENT: EOMI, normal conjunctiva Lungs: CTA, no wheezing or crackles Heart: normal S1/S2, no murmur Abd: ND, NT, normal BS MSK: no LE edema Psych: AAOx3, normal affect Principal Diagnosis Coronary artery disease Transient blurred vision Left lung nodule Discharge Data Allergies Allergy/AdvReac Type Severity Reaction Status Date / Time acetaminophen Allergy Unknown "made me Verified 06/03/22 10:02 sick" shellfish derived Allergy Unknown SEAFOOD Verified 06/03/22 10:02 ALLERGY propoxyphene [From Darvon] Allergy . Verified 06/21/22 19:03 aspirin AdvReac Unknown BLEEDING Verified 06/03/22 10:02 meperidine AdvReac Unknown "felt like Verified 06/03/22 10:02 my head and heart was going to blow up" oxycodone AdvReac Unknown "felt like Verified 06/03/22 10:02 my head and heart was going to blow up" Consultations 06/21/22 11:58 ED Decision to Admit Stat 06/21/22 12:58 Consult Cardiology Routine Procedures Performed Laboratory Results WBC 5.02 K/ul (4.8-10.8) 06/22/22 06:11 RBC 4.48 M/uL (3.93-5.22) 06/22/22 06:11 Hgb 13.1 g/dl (12.0-16.0) 06/22/22 06:11 POC Hgb 11.9 g/dl (12.0-16.0) L 06/21/22 11:33 Hct 38.1 % (34.1-44.9) 06/22/22 06:11 POC Hct 35 % (37-47) L 06/21/22 11:33 MCV 85.0 fL (80.0-100.0) 06/22/22 06:11 MCH 29.2 pg (25.0-34.0) 06/22/22 06:11 MCHC 34.4 g/dL (32.0-36.0) 06/22/22 06:11 RDW Std Deviation 39.5 fL (36.4-46.3) 06/22/22 06:11 RDW Coeff of Rose Marie 12.8 % (11.5-14.5) 06/22/22 06:11 Plt Count 215 K/uL (130-400) 06/22/22 06:11 MPV 12.5 fL (9.4-12.3) H 06/22/22 06:11 Immature Gran % (Auto) 0.3 % 06/21/22 09:04 Neut % (Auto) 72.9 % 06/21/22 09:04 Lymph % (Auto) 17.5 % 06/21/22 09:04 King % (Auto) 6.7 % 06/21/22 09:04 Eos % (Auto) 1.8 % 06/21/22 09:04 Baso % (Auto) 0.8 % 06/21/22 09:04 Neut # (Auto) 4.45 K/uL (1.4-6.5) 06/21/22 09:04 Lymph # (Auto) 1.07 K/uL (1.2-3.4) L 06/21/22 09:04 King # (Auto) 0.41 K/uL (0.24-0.82) 06/21/22 09:04 Eos # (Auto) 0.11 K/uL (0-0.50) 06/21/22 09:04 Baso # (Auto) 0.05 K/uL (0-0.2) 06/21/22 09:04 Immature Gran # (Auto) 0.02 K/uL (0.00-0.02) 06/21/22 09:04 PT 10.5 Seconds (9.0-12.0) 06/21/22 09:04 INR 1.0 (0.9-1.1) 06/21/22 09:04 APTT 25.1 Seconds (21.0-31.0) 06/21/22 09:04 PTT Ratio 0.9 06/21/22 09:04 POC Sodium 137 mmol/L (135-144) 06/21/22 11:33 Sodium 137 mmol/L (136-145) 06/22/22 06:11 POC Potassium 4.3 mmol/L (3.3-5.0) 06/21/22 11:33 Potassium 3.9 mmol/L (3.5-5.1) 06/22/22 06:11 POC Chloride 103 mmol/L (101-112) 06/21/22 11:33 Chloride 104 mmol/L (98-107) 06/22/22 06:11 Carbon Dioxide 25 mmol/L (21-32) 06/22/22 06:11 POC Total CO2 23 mmol/L (24-31) L 06/21/22 11:33 Anion Gap 8 (3-11) 06/22/22 06:11 POC Anion Gap 15.0 mmol/L (16-25) L 06/21/22 11:33 POC BUN 18 mg/dl (7-18) 06/21/22 11:33 BUN 21 mg/dl (6-23) 06/22/22 06:11 Creatinine 0.95 mg/dl (0.6-1.2) 06/22/22 06:11 POC Creatinine 0.9 mg/dl (0.6-1.3) 06/21/22 11:33 Est Cr Clr Drug Dosing 47.5 ml/min 06/22/22 06:11 Est GFR ( Amer) 68.9 ml/min 06/22/22 06:11 Est GFR (Non-Af Amer) 59.4 ml/min 06/22/22 06:11 BUN/Creatinine Ratio 22.1 (10-20) H 06/22/22 06:11 Glucose 86 mg/dl (70-99(Fasting)) 06/22/22 06:11 POC Glucose (other) 88 mg/dl (70-99) 06/21/22 11:33 Estimat Average Glucose 123 mg/dl 06/21/22 18:00 Hemoglobin A1c 5.9 % (4.5-5.6) H 06/21/22 18:00 Calcium 9.5 mg/dl (8.5-10.1) 06/22/22 06:11 POC Ioniz Calcium Mikayla 1.21 mmol/l (1.12-1.32) 06/21/22 11:33 Magnesium 2.1 mg/dl (1.7-2.4) 06/21/22 15:38 Troponin I High Sens 30.6 pg/ml (0-14) H 06/22/22 06:11 Lipase 24 U/L (11-82) 06/22/22 06:11 TSH 1.201 uIu/ml (0.300-4.500) 06/21/22 15:38 SARS-CoV-2, RNA, NAAT NEGATIVE (NEGATIVE) 06/21/22 09:28 Impressions Chest X-Ray 06/21/22 09:01 XR chest 1V portable CLINICAL HISTORY: Chest Pain TECHNIQUE: Single frontal radiograph of the chest was obtained. Comparison: Comparison is made to chest radiograph 02/17/2013 FINDINGS: No lines and tubes are seen. Calcified aortic knob is seen. The lungs are clear. No evidence of pleural effusion or pneumothorax. IMPRESSION: No acute chest disease. ACT 112: Negative or not required by law. Electronically signed by: Rafal Tatum M.D. 06/21/2022 9:[address] 06/21/22 09:01 CT head/brain wo con CLINICAL HISTORY: 71 years-old Female with blurry vision resolved. Acute strokelike symptoms with blurry vision TECHNIQUE: Multiple axial CT images of the head were obtained without contrast. A dose lowering technique was utilized adhering to the principles of ALARA. CT DOSE: 537.48 mGy.cm COMPARISON: Head CT 04/07/2010 FINDINGS: No acute intracranial hemorrhage, midline shift, intracranial mass, hydrocephalus, territorial ischemia or abnormal extra-axial collection. Mild in volutional changes. The calvarium is intact. The paranasal sinuses, mastoid air cells, and middle ear cavities are clear. IMPRESSION: No acute intracranial abnormality. ACT 112: Negative or not required by law. The above report was generated using voice recognition software. It may contain grammatical, syntax or spelling errors. Electronically signed by: Bolivar Allen M.D. 06/21/2022 9:43 AM Chest CTA 06/21/22 10:33 CT angio chest PE protocol CLINICAL HISTORY: ro pe TECHNIQUE: Multidetector row helical CT of the chest was performed with angiographic protocol. Coronal and sagittal reformations were obtained. Coronal and sagittal MIPS were obtained from the axial data set and were submitted for review. Automated dose lowering techniques and/or adjustment according to patient size were utilized for this exam. CT DOSE: 261.24 mGy.cm Comparison: Comparison is made to chest radiograph 06/21/2022 and CTA chest 10/16/2010 FINDINGS: Lungs and pleura: There is a 4 mm nodule in the left lower lobe (series 4 image 90). A fissural node is seen in the right horizontal fissure which may represent an intraparenchymal lymph node. Heart and pericardium: Heart size is normal. No pericardial effusion. Vessels: Evaluation for pulmonary embolism is limited due to patient motion. No evidence of central, lobar, or segmental embolus. Severe atherosclerotic disease is seen in the coronary arteries. Mediastinum and saul: Subcentimeter lymph nodes are seen. Chest wall and lower neck: Unremarkable. Abdomen: A hiatal hernia is seen. Bones: Degenerative changes in the thoracic spine. IMPRESSION: 1. No evidence of pulmonary embolism. 2. 4 mm nodule in the left lower lobe. This is unchanged from prior exam. No further follow-up is required. ACT 112: Negative or not required by law. Electronically signed by: Rafal Tatum M.D. 06/21/2022 11:27 AM Carotid Doppler Study 06/21/22 12:32 BILATERAL CAROTID DOPPLER STUDY HISTORY: altered mental status; elevated troponin COMPARISON: None. TECHNIQUE: Real-time, grayscale, and color Doppler sonography of the carotid arteries was performed. Imaging reviewed in the transverse and longitudinal planes. All measurements were calculated based on NASCET criteria. FINDINGS: Antegrade flow is seen in the bilateral vertebral arteries. Minimal calcified plaque within the bilateral carotid bifurcations. The peak systolic velocity within the right ICA is 100 cm/s. The right systolic ratio is 0.75. The peak systolic velocity within the left ICA is 91 cm/s. The left systolic ratio is 1.0. IMPRESSION: No hemodynamically significant stenosis seen within the carotid arteries. ACT 112: Negative or not required by law. Electronically signed by: Kevin Parish M.D. 06/21/2022 2:56 PM Ordered Studies 06/21/22 09:01 CT head/brain wo con Stat 06/21/22 10:33 CT angio chest PE protocol Stat 06/21/22 12:32 US carotid doppler BI Stat Hospital Course (1) CAD (coronary artery disease): (2) Status post coronary artery stent placement: (3) Graves disease: (4) HTN (hypertension): Plan Patient is a 71 yr female who presented today feeling like she wasnt getting enough oxygen. Her feelings of this started around 0500 this AM. She also reports having blurry vision that lasted more than two hours but has resolved. NSR on monitor, Troponin's slightly elevated at 30.5; will trend; likely could be residual from recent STEMI. CT head was negative and CTA of chest negative. Carotid US ordered. Additional PMH includes: a STEMI on May 30, 2022 s/p PCI stent placement x2 (LAD and RCA) due to 99% occlusion, HTN, bladder prolapse, and Grave's Disease. Coronary artery disease Elevated troponin s/p coronary artery stent placement: H/O STEMI on May 30, 2022 s/p PCI stent placement x2 (LAD and RCA) due to 99% occlusion Mild Troponin elevation likley from recent STEMI -ECHO: No significant change from prior study. EF 60 to 65%. Mild concentric LVH. Grade 1 diastolic dysfunction. No significant valvular pathology. --CTA:No evidence of pulmonary embolism. 4 mm nodule in the left lower lobe. This is unchanged from prior exam. No further follow-up is required. Continue aspirin, Brilinta, statin, metoprolol Appreciate cardiology input Needs follow-up with cardiology upon discharge Transient blurred vision H/O Laser surgery as per patient -CT head:No acute intracranial abnormality. -Carotid ultrasound: No hemodynamically significant stenosis seen within the carotid arteries. -ECHO as above Patient refused MRI due to claustrophobia Advised to follow-up with her library services coordinator as outpatient Left lung nodule History of smoking in the past Incidental finding on CT Advised to follow-up with PCP as outpatient HTN: Continue Metoprolol HLD: On atorvastatin; Grave's Disease: Does not take any medications or follow with Endocrine Normal TSH Code Status Full Code Total Time Total Time Spent Total Time Spent (In Minutes): 43 minutes Discharge Plan Discharge Items Patient Disposition: Home - Self-Care Reason For Visit: DIFFICULTY BREATHING Discharge Diagnosis: Coronary artery disease Transient blurred vision Left lung nodule Activity: Per Instructions section Exercise/Sports: Gradually increase as tolerated Non-emergency contact: Primary Care Provider, Bricklayer Apprentice and Nutritional Services Host Call non-emergency contact if: you have any medication questions, your symptoms worsen and your pain is concerning for you Follow-up/Referrals: Marilin Rojas MD [Physician] - 06/28/22 11:30 am Diet: Heart Healthy Diet Texture: Easy to Chew Addtl Attending Provider Instructions: Follow up with your PCP in 1 week Follow-up with your production supply equipment tender at [facility] in 2 weeks as scheduled Follow up with your library services coordinator in 2 to 3 weeks as advised. Seek immediate medical attention if your symptoms reoccur or worsen Please take all medications as instructed on discharge list below. Please call if you have any questions or problems. You can reach a [facility] hospitalist on duty at [facility] 24 hours a day by calling [phone] Pending Studies at Discharge: No Stand-Alone Forms: My [facility] [employer] ([employer]), Smoking Cessation Medications and DC Order Prescriptions: Continued atorvastatin 80 mg tablet 80 mg PO DAILY Qty: 90 3RF lisinopril 2.5 mg tablet 2.5 mg PO DAILY Qty: 90 3RF metoprolol succinate 25 mg tablet extended release 24 hr 25 mg PO DAILY Qty: 90 3RF ticagrelor 90 mg tablet 90 mg PO Q12H Qty: 180 3RF aspirin [Adult Aspirin Regimen] 81 mg tablet,delayed release (DR/EC) 81 mg PO DAILY Discharge Orders: Discharge Order (Routine); Ordered 06/22/22 Ordered By: Dmitry Ahn Admission Data Admit Date/Time: 06/21/22 12:05 Attending Provider: Dmitry Ahn Admit Provider: Perla Azul Primary Care Provider: Kristy Blount Other Providers: Hua Parrish Thiviyanath
--- NOTE | 2022-06-23 14:45 | Communication Note ---
Date of Service: June 23, 2022 Code 44 attestation: The chart of Deonna Saucedo , 1950 was reviewed and she was managed by the attending physician appropriately and was discharged home in stable medical condition. By CMS guidelines, a determination that the admission or continued stay is not medically necessary has been made by a member of the UR committee and a physicia n for this hospital stay, therefore a Code 44 will be completed and the Inpatient admission will be changed to outpatient. Dr Ana Tang Member UR Committee
== END 2022-06-22 16:06 | disposition home or self-care (01) ==
LOC: ED 08:11 → 2E 12:05 → SUATTDRO 12:05 → INTOOBSV 12:05 → 2E 15:30